=== PATIENT | male | born 1980 | race Caucasian/White ===

== ENCOUNTER 2018-11-27 18:58 | Emergency (ER) | payer SELFPAY ==
[~2018-11-27] VITALS: Ht 177.8 cm; Wt 88.9 kg
[2018-11-27 19:04] VITALS: Ht 177.8 cm; Wt 88.9 kg
[2018-11-27 21:59] VITALS: BP 135/68
== END 2018-11-27 21:59 | disposition home or self-care (01) ==
LOC: ED 18:58
DX: S01.01XA Laceration without foreign body of scalp, initial encounter (principal); S06.0X0A Concussion without loss of consciousness, initial encounter; W22.8XXA Striking against or struck by other objects, initial encounter; Y93.89 Activity, other specified; Y92.89 Other specified places as the place of occurrence of the external cause; Y99.8 Other external cause status